=== PATIENT | female | born 1955 | race American Indian/Alaskan Native ===

== ENCOUNTER 2017-10-23 12:58 | Outpatient (CLI) | payer OTHER ==
--- NOTE | 2017-10-23 14:22 | XRay Report ---
LEFT SHOULDER, 3 VIEWS History: Left shoulder pain. Findings: Osteopenia is evident. Severe joint space narrowing, mild spurring and numerous subchondral cysts is identified at the glenohumeral joint. The acromioclavicular joint is within normal limits. No evidence for fracture, dislocation or ligamentous injury. No suspicious bone lesion. The soft tissues are unremarkable. Impression: Osteopenia. Severe osteoarthritic changes at the left glenohumeral joint.
== END 2017-10-23 12:59 | disposition home or self-care (01) ==
LOC: XRAY 12:58
PROVIDERS: ATTEND Internal Medicine
DX: M19.012 Primary osteoarthritis, left shoulder (principal); M85.812 Other specified disorders of bone density and structure, left shoulder